=== PATIENT | male | born 1940 | race Caucasian/White ===

== ENCOUNTER 2018-02-27 01:18 | Inpatient (IN) | payer MEDICARE ==
[~2018-02-27] VITALS: Ht 177.8 cm; Wt 76.6 kg
[2018-02-27 01:52] LABS: BASOPHILS % (AUTO) 0.5 % (0.0-5.0); EOSINOPHILS % (AUTO) 0.7 % (0.0-8.0); HEMATOCRIT 48.3 % (42-54); LYMPHOCYTES % (AUTO) 6.3 % (21.0-51.0); MEAN CORPUSCULAR HEMOGLOBIN 29.6 pg (27.0-33.0); MEAN CORPUSCULAR HGB CONC 33.3 g/dL (32.0-36.0); MEAN CORPUSCULAR VOLUME 88.9 fL (79-99); MONOCYTES % (AUTO) 9.8 % (3.0-13.0); NEUTROPHILS % (AUTO) 82.7 % (40.0-77.0); PLATELET COUNT (AUTO) 136 K/uL (130-400); RED BLOOD CELL COUNT(AUTO) 5.43 MIL/uL (4.50-6.20); RED CELL DISTRIBUTION WIDTH 13.9 % (11.0-15.5); WHITE BLOOD COUNT (AUTO) 10.6 K/uL (4.8-10.8)
[2018-02-27 02:07] LABS: AMYLASE 67 U/L (25-115); CREATINE KINASE, TOTAL 46 U/L (21-232); LIPASE 91 U/L (114-286)
[2018-02-27 02:11] LABS: INR 1.14 (0.85-1.15); PARTIAL THROMBOPLASTIN TIME 26.6 SEC (26.3-35.5); PROTHROMBIN TIME 11.9 SEC (9.6-11.6)
[2018-02-27] MEDS ORDERED: ONDANSETRON HCL 4 MG/2 ML VIAL ONE (04:01)
[2018-02-27] MEDS ORDERED: KETOROLAC TROMETHAMINE 15MG/ML ONE (04:01)
[2018-02-27] MEDS ORDERED: METRONIDAZOLE 500MG/100ML BAG 100 ML ONE (04:01)
[2018-02-27] MEDS ORDERED: SODIUM CHLORIDE 0.9% 1000ML 1,000 ML IV ONE (04:01)
[2018-02-27] MEDS ORDERED: ONDANSETRON HCL 4 MG/2 ML VIAL IV PRN (04:30)
[2018-02-27 05:10] VITALS: BP 99/62
[2018-02-27 08:27] VITALS: BP 96/58
[2018-02-27 09:07] LABS: APPEARANCE,URINE Clear (CLEAR); BILIRUBIN,URINE Small (NEGATIVE); COLOR,URINE Dark Yellow (YELLOW); GLUCOSE, URINE (UA) Negative (NEGATIVE); KETONES,URINE Trace mg/dL (NEGATIVE); LEUKOCYTE ESTERASE ,URINE Trace (NEGATIVE); NITRATE,URINE Negative (NEGATIVE); OCCULT BLOOD,URINE Negative (NEGATIVE); PH,URINE 5.5 (5.0-8.0); PROTEIN,URINE Trace (NEGATIVE)
[2018-02-27 09:26] LABS: BACTERIA,URINE Rare /HPF (None Seen); MUCUS,URINE Few LPF (None Seen); RBC,URINE 0-1 /HPF (0-1); SQUAMOUS EPITHELIAL CELL,UR Rare /HPF (0-2)
[2018-02-27] MEDS: METRONIDAZOLE 500MG/100ML BAG 100 ML IV SCH ×3 (10:21→20:50)
[2018-02-27] MEDS: FAMOTIDINE/PF 20 MG/2 ML VIAL IV SCH ×2 (10:24→20:50)
[2018-02-27] MEDS: SODIUM CHLORIDE 0.9% 1000ML 1,000 ML IV SCH ×3 (10:25→17:38)
[2018-02-27 12:11] VITALS: BP 102/57
[2018-02-27 16:21] VITALS: BP 104/58
[2018-02-27] MEDS ORDERED: LEVOFLOXACIN 500 MG/D5W 100 ML 100 ML IV SCH (17:45)
[2018-02-27 19:32] VITALS: BP 103/60
[2018-02-27] MEDS ORDERED: OMEP20CA10 PO (23:15)
[2018-02-27] MEDS ORDERED: [UNRECOGNIZED DRUG - OTHER] (23:15)
[2018-02-27] MEDS ORDERED: POLY119P8 PO (23:15)
[2018-02-27] MEDS ORDERED: CHON100P3 MC (23:15)
[2018-02-27] MEDS ORDERED: MONT10TA21 PO (23:15)
[2018-02-27] MEDS ORDERED: TAMS-1 PO (23:15)
[2018-02-27] MEDS ORDERED: ATOR10 PO (23:15)
[2018-02-27] MEDS ORDERED: GLUC100019 PO (23:15)
[2018-02-27] MEDS ORDERED: FISH1CAP63 PO (23:15)
[2018-02-27 23:18] VITALS: BP 106/60
[2018-02-28] MEDS: SODIUM CHLORIDE 0.9% 1000ML 1,000 ML IV SCH ×4 (00:01→21:49)
[2018-02-28 03:21] VITALS: BP 106/63
[2018-02-28 04:33] LABS: HEMATOCRIT 37.3 % (42-54); MEAN CORPUSCULAR HGB CONC 34.6 g/dL (32.0-36.0); MEAN CORPUSCULAR VOLUME 89.5 fL (79-99); PLATELET COUNT (AUTO) 118 K/uL (130-400); RED BLOOD CELL COUNT(AUTO) 4.16 MIL/uL (4.50-6.20); RED CELL DISTRIBUTION WIDTH 13.7 % (11.0-15.5); WHITE BLOOD COUNT (AUTO) 5.6 K/uL (4.8-10.8)
[2018-02-28 04:38] LABS: HEMOGLOBIN A1C 5.3 % (4.0-6.0)
[2018-02-28 04:56] LABS: ALBUMIN 2.7 g/dL (3.5-5.0); CREATININE 1.2 mg/dL (0.5-1.5); CRP QUANTITATIVE 32.5 mg/L (0.00-9.0); MAGNESIUM 1.7 mg/dL (1.80-2.40); PHOSPHORUS 2.7 mg/dL (2.5-4.9); POTASSIUM 3.8 mmol/L (3.5-5.1); TOTAL PROTEIN, SERUM 5.4 g/dL (6.0-8.3)
[2018-02-28] MEDS: METRONIDAZOLE 500MG/100ML BAG 100 ML IV SCH ×3 (05:12→21:48)
[2018-02-28 05:38] LABS: ERYTHROCYTE SEDIMENTATION RATE 9 MM/HR (0-20)
[2018-02-28] MEDS: MORPHINE SULFATE 2 MG/ML 1ML SYG IV PRN ×3 (06:39→14:34)
[2018-02-28 08:19] VITALS: BP 113/66
[2018-02-28] MEDS: FAMOTIDINE/PF 20 MG/2 ML VIAL IV SCH ×2 (09:53→21:48)
[2018-02-28 11:54] VITALS: BP 161/80
[2018-02-28 17:01] VITALS: BP 115/65
[2018-02-28] MEDS ORDERED: MAGNESIUM 2GM PREMIX 50ML 50 ML IV PRN (19:15)
[2018-02-28 19:40] VITALS: BP 130/81
[2018-02-28 23:10] VITALS: BP 124/70
[2018-03-01 03:00] VITALS: BP 142/95
[2018-03-01] MEDS: MORPHINE SULFATE 2 MG/ML 1ML SYG IV PRN (04:43)
[2018-03-01] MEDS: METRONIDAZOLE 500MG/100ML BAG 100 ML IV SCH ×3 (04:44→20:13)
[2018-03-01] MEDS: SODIUM CHLORIDE 0.9% 1000ML 1,000 ML IV SCH ×4 (04:44→20:13)
[2018-03-01 05:57] LABS: HEMATOCRIT 39.1 % (42-54); MEAN CORPUSCULAR HEMOGLOBIN 30.3 pg (27.0-33.0); MEAN CORPUSCULAR HGB CONC 34.1 g/dL (32.0-36.0); MEAN CORPUSCULAR VOLUME 88.9 fL (79-99); PLATELET COUNT (AUTO) 107 K/uL (130-400); RED CELL DISTRIBUTION WIDTH 13.4 % (11.0-15.5)
[2018-03-01 06:10] LABS: BAND NEUTROPHILS % (MANUAL) 2 % (0-2); BASOPHILS % (MANUAL) 1 % (0-2); EOSINOPHILS % (MANUAL) 2 % (1-6); LYMPHOCYTES % (MANUAL) 11 % (22-44); MAN.DIFF COMMENT-IMPRESSION MANUAL DIFFERENTIAL; MONOCYTES % (MANUAL) 11 % (2-9); SEGMENTED NEUTROPHILS % 73 % (40-70)
[2018-03-01 06:11] LABS: PLATELET MORPHOLOGY COMMENT DECREASED
[2018-03-01 06:13] LABS: CREATININE 1.1 mg/dL (0.5-1.5); MAGNESIUM 1.6 mg/dL (1.80-2.40); POTASSIUM 3.6 mmol/L (3.5-5.1)
[2018-03-01 08:37] VITALS: BP 124/79
[2018-03-01] MEDS: FAMOTIDINE/PF 20 MG/2 ML VIAL IV SCH ×2 (08:42→20:13)
[2018-03-01 13:31] VITALS: BP 135/78
[2018-03-01 17:00] VITALS: BP 137/75
[2018-03-01 19:26] VITALS: BP 115/77
[2018-03-01 23:22] VITALS: BP 132/75
[2018-03-02] MEDS: METRONIDAZOLE 500MG/100ML BAG 100 ML IV SCH ×3 (03:13→19:46)
[2018-03-02 03:17] VITALS: BP 123/69
[2018-03-02] MEDS: SODIUM CHLORIDE 0.9% 1000ML 1,000 ML IV SCH ×3 (05:26→21:49)
[2018-03-02 05:53] LABS: HEMATOCRIT 40.3 % (42-54); MEAN CORPUSCULAR HGB CONC 35.4 g/dL (32.0-36.0); MEAN CORPUSCULAR VOLUME 87.4 fL (79-99); PLATELET COUNT (AUTO) 133 K/uL (130-400); RED BLOOD CELL COUNT(AUTO) 4.61 MIL/uL (4.50-6.20); RED CELL DISTRIBUTION WIDTH 13.2 % (11.0-15.5); WHITE BLOOD COUNT (AUTO) 7.6 K/uL (4.8-10.8)
[2018-03-02 06:23] LABS: MAGNESIUM 1.6 mg/dL (1.80-2.40); PHOSPHORUS 2.9 mg/dL (2.5-4.9); POTASSIUM 3.4 mmol/L (3.5-5.1)
[2018-03-02 07:00] VITALS: BP 137/83
[2018-03-02] MEDS ORDERED: POTASSIUM CHLORIDE 20 MEQ ERTAB PO SCH ×2 (07:15→12:00)
[2018-03-02] MEDS ORDERED: MAGNESIUM 4GM PREMIX 100ML 100 ML IV SCH (07:15)
[2018-03-02] MEDS ORDERED: LUBIPROSTONE 24 MCG CAP PO SCH (08:00)
[2018-03-02] MEDS: ACETAMINOPHEN 325 MG TAB PO PRN ×2 (09:47→19:47)
[2018-03-02] MEDS: MAGNESIUM OXIDE 400 MG TABLET PO SCH (09:48)
[2018-03-02] MEDS: FAMOTIDINE/PF 20 MG/2 ML VIAL IV SCH ×2 (09:48→19:46)
[2018-03-02 11:00] VITALS: BP 123/71
[2018-03-02] MEDS: LUBIPROSTONE 24 MCG CAP PO SCH ×2 (13:41→17:18)
[2018-03-02 14:21] LABS: CREATININE 1.1 mg/dL (0.5-1.5); MAGNESIUM 3.3 mg/dL (1.80-2.40); POTASSIUM 4.1 mmol/L (3.5-5.1)
[2018-03-02 16:00] VITALS: BP 127/70
[2018-03-02 19:00] VITALS: BP 125/74
[2018-03-02] MEDS: DICYCLOMINE HCL 20 MG TAB PO PRN (19:46)
[2018-03-02] MEDS ORDERED: IBUPROFEN 600 MG TABLET PO PRN (22:45)
[2018-03-02] MEDS ORDERED: PHARMACY COMMUNICATION MISC SCH (22:45)
[2018-03-03] VITALS: BP 135/70
[2018-03-03] MEDS: SODIUM CHLORIDE 0.9% 1000ML 1,000 ML IV SCH ×3 (00:48→08:18)
[2018-03-03] MEDS: METRONIDAZOLE 500MG/100ML BAG 100 ML IV SCH (03:40)
[2018-03-03 04:00] VITALS: BP 122/59
[2018-03-03 05:16] LABS: HEMATOCRIT 41.9 % (42-54); MEAN CORPUSCULAR HEMOGLOBIN 29.8 pg (27.0-33.0); MEAN CORPUSCULAR HGB CONC 34.1 g/dL (32.0-36.0); MEAN CORPUSCULAR VOLUME 87.3 fL (79-99); NUCLEATED RED BLOOD CELLS 0.1 % (0.0-0.19); PLATELET COUNT (AUTO) 139 K/uL (130-400); RED CELL DISTRIBUTION WIDTH 13.4 % (11.0-15.5); WHITE BLOOD COUNT (AUTO) 7.3 K/uL (4.8-10.8)
[2018-03-03] MEDS: DICYCLOMINE HCL 20 MG TAB PO PRN (05:28)
[2018-03-03 05:35] LABS: CRP QUANTITATIVE 70.3 mg/L (0.00-9.0); POTASSIUM 3.8 mmol/L (3.5-5.1)
[2018-03-03] MEDS: MORPHINE SULFATE 2 MG/ML 1ML SYG IV PRN (06:18)
[2018-03-03 07:00] VITALS: BP 122/65
[2018-03-03] MEDS: FAMOTIDINE/PF 20 MG/2 ML VIAL IV SCH (08:23)
[2018-03-03] MEDS: MAGNESIUM OXIDE 400 MG TABLET PO SCH (08:23)
[2018-03-03] MEDS: LUBIPROSTONE 24 MCG CAP PO SCH (08:23)
[2018-03-03] MEDS ORDERED: TAMSULOSIN HCL 0.4 MG CAP.ER.24H PO SCH (09:00)
[2018-03-03] MEDS ORDERED: HEMORRHOIDAL OINTMENT 57 GM CREAM.GM. RC SCH (09:00)
[2018-03-03 11:00] VITALS: BP 135/87
[2018-03-03] MEDS ORDERED: LUBI8CAP PO (13:11)
[2018-03-03] MEDS ORDERED: TAMS-1 PO (13:11)
== END 2018-03-03 14:50 | disposition home or self-care (01) | DRG 388 ==
LOC: EDH 01:18 → OBSVTOIN 04:10 → EDHIP 04:10 → 3AH 04:34
PROVIDERS: ADMIT Internal Medicine; ATTEND Internal Medicine
PROC: 0D9670Z Drainage of Stomach with Drainage Device, Via Natural or Artificial Opening (ICD-10-PCS; principal; 2018-02-27)
DX: K56.51 Intestinal adhesions [bands], with partial obstruction (principal); E41 Nutritional marasmus; E44.0 Moderate protein-calorie malnutrition; K43.9 Ventral hernia without obstruction or gangrene; N40.0 Benign prostatic hyperplasia without lower urinary tract symptoms; N40.1 Benign prostatic hyperplasia with lower urinary tract symptoms; K59.09 Other constipation; E83.42 Hypomagnesemia; E87.6 Hypokalemia; N32.89 Other specified disorders of bladder; R33.9 Retention of urine, unspecified; G62.9 Polyneuropathy, unspecified; R33.8 Other retention of urine; E78.5 Hyperlipidemia, unspecified; Z68.24 Body mass index [BMI] 24.0-24.9, adult; Z88.1 Allergy status to other antibiotic agents
CPT/HCPCS: 36415; 71046; 74018; 74176; 80048; 80053; 80061; 80339; 81001; 82150; 82270; 82550; 83036; 83630; 83690; 83735; 84100; 85025; 85027; 85610; 85651; 85730; 86140; 87046; 87071; 87177; 87205; 87324; 93005; J1885; J1956; J2405; J3475; J3490; J7030

== ENCOUNTER 2019-05-18 06:00 | Emergency (ER) | payer MEDICARE ==
[~2019-05-18 06:00] MED LIST: ATOR10 PO; CHON100P3 MC; FISH1CAP63 PO; GLUC100019 PO; LUBI8CAP PO; MONT10TA21 PO; OMEP20CA12 PO; POLY119P8 PO; TAMS-1 PO
[2019-05-18] MEDS ORDERED: KETOROLAC TROMETHAMINE 15MG/ML ONE (06:35)
[2019-05-18] MEDS ORDERED: SODIUM CHLORIDE 0.9% 1000ML 2,000 ML IV ONE (06:35)
[2019-05-18 06:41] LABS: BASOPHILS % (AUTO) 1.2 % (0.0-5.0); EOSINOPHILS % (AUTO) 2.6 % (0.0-8.0); HEMATOCRIT 48.1 % (42-54); MEAN CORPUSCULAR HEMOGLOBIN 27.5 pg (27.0-33.0); MEAN CORPUSCULAR HGB CONC 32.8 g/dL (32.0-36.0); MEAN CORPUSCULAR VOLUME 83.7 fL (79-99); MONOCYTES % (AUTO) 10.9 % (3.0-13.0); NEUTROPHILS % (AUTO) 63.1 % (40.0-77.0); PLATELET COUNT (AUTO) 130 K/uL (130-400); RED BLOOD CELL COUNT(AUTO) 5.75 MIL/uL (4.50-6.20); RED CELL DISTRIBUTION WIDTH 13.7 % (11.0-15.5); WHITE BLOOD COUNT (AUTO) 5.1 K/uL (4.8-10.8)
[2019-05-18 06:52] LABS: CREATININE 1.1 mg/dL (0.5-1.5); INR 1.09 (0.85-1.15); PARTIAL THROMBOPLASTIN TIME 27.1 SEC (26.3-35.5); POTASSIUM 3.8 mmol/L (3.5-5.1); PROTHROMBIN TIME 11.4 SEC (9.6-11.6)
[2019-05-18 06:58] LABS: ALBUMIN 3.8 g/dL (3.5-5.0); BILIRUBIN,TOTAL 0.7 mg/dL (0.2-1.0); TOTAL PROTEIN, SERUM 7.3 g/dL (6.0-8.3)
[2019-05-18 07:17] LABS: APPEARANCE,URINE CLEAR (CLEAR); BILIRUBIN,URINE NEGATIVE (NEGATIVE); COLOR,URINE YELLOW (YELLOW); GLUCOSE, URINE (UA) NEGATIVE (NEGATIVE); KETONES,URINE NEGATIVE (NEGATIVE); LEUKOCYTE ESTERASE ,URINE NEGATIVE (NEGATIVE); NITRATE,URINE NEGATIVE (NEGATIVE); OCCULT BLOOD,URINE TRACE-INTACT (NEGATIVE); PH,URINE 7.5 (5.0-8.0); PROTEIN,URINE NEGATIVE (NEGATIVE); UROBILINOGEN,URINE 0.2 mg/dL (0.2-1.0)
[2019-05-18 07:34] LABS: BACTERIA,URINE Rare /HPF (None Seen); SQUAMOUS EPITHELIAL CELL,UR Rare /HPF (0-2); WBC,URINE 0-1 /HPF (0-1)
[2019-05-18] MEDS ORDERED: METOCLOPRAMIDE 10 MG/2 ML VIAL ONE (07:56)
== END 2019-05-18 08:56 | disposition home or self-care (01) ==
LOC: EDH 06:00
DX: N20.1 Calculus of ureter (principal); N23 Unspecified renal colic; N40.0 Benign prostatic hyperplasia without lower urinary tract symptoms; E78.5 Hyperlipidemia, unspecified; Z88.1 Allergy status to other antibiotic agents; Z88.2 Allergy status to sulfonamides
CPT/HCPCS: 36415; 74176; 80053; 81001; 82550; 83605; 83690; 84484; 85025; 85610; 85730; 87040 ×2; 87088; 96374; 96375; 99284; J1885; J2765; J7030

== ENCOUNTER 2023-03-14 21:54 | Emergency (ER) | payer MEDICARE ==
[~2023-03-14] VITALS: Ht 177.8 cm; Wt 73.5 kg
[~2023-03-14 21:54] MED LIST changes: +MONT-46 PO; -MONT10TA21 PO; +POLY119P3 PO; -POLY119P8 PO
[2023-03-14 22:31] LABS: BASOPHILS # (AUTO) 0.03 K/uL (0.00-0.20); BASOPHILS % (AUTO) 0.4 % (0.0-5.0); HEMATOCRIT 44.2 % (42-54); IMMATURE GRANULOCYTE ABSOLUTE 0.02 K/uL (0-1); LYMPHOCYTES # (AUTO) 0.8 K/uL (1.0-4.8); LYMPHOCYTES % (AUTO) 11.6 % (21.0-51.0); MEAN CORPUSCULAR HEMOGLOBIN 29.1 pg (27.0-33.0); MEAN CORPUSCULAR HGB CONC 34.2 g/dL (32.0-36.0); MEAN CORPUSCULAR VOLUME 85.2 fL (79-99); MONOCYTES # (AUTO) 0.6 K/uL (0.1-1.0); NEUTROPHILS # (AUTO) 5.3 K/uL (1.8-7.7); NEUTROPHILS % (AUTO) 78.7 % (40.0-77.0); PLATELET COUNT (AUTO) 149 K/uL (130-400); RED BLOOD CELL COUNT(AUTO) 5.19 MIL/uL (4.50-6.20); WHITE BLOOD COUNT (AUTO) 6.8 K/uL (4.8-10.8)
[2023-03-14 22:33] LABS: ADD UA MICROSCOPIC YES; APPEARANCE,URINE CLEAR (CLEAR); BILIRUBIN,URINE NEGATIVE (NEGATIVE); COLOR,URINE YELLOW (YELLOW); GLUCOSE, URINE (UA) NEGATIVE (NEGATIVE); KETONES,URINE 10 mg/dL (NEGATIVE); LEUKOCYTE ESTERASE ,URINE NEGATIVE Leu/uL (NEGATIVE); NITRATE,URINE NEGATIVE (NEGATIVE); OCCULT BLOOD,URINE NEGATIVE (NEGATIVE); PH,URINE 5.5 (5.0-8.0); PROTEIN,URINE NEGATIVE (NEGATIVE); UROBILINOGEN,URINE 0.2 mg/dL (0.2-1.0)
[2023-03-14 22:34] LABS: MUCUS,URINE RARE LPF (None Seen); WBC,URINE 0-1 /HPF (0-1)
[2023-03-14 22:47] LABS: CREATININE 1.3 mg/dL (0.5-1.5)
[2023-03-14 22:54] LABS: ALBUMIN 3.5 g/dL (3.5-5.0); BILIRUBIN,TOTAL 0.9 mg/dL (0.2-1.0); TOTAL PROTEIN, SERUM 7.6 g/dL (6.0-8.3)
[2023-03-14 22:58] LABS: B-TYPE NATRIURETIC PEPTIDE 31 pg/mL (0-100)
[2023-03-14] MEDS ORDERED: IOHEXOL 350 MG/ML 100ML INFUS..BTL IV ONE (23:01)
[2023-03-15] MEDS ORDERED: IBUP-1493 PO (00:58)
[2023-03-15] MEDS ORDERED: DICY20TA2 PO (01:00)
[2023-03-15 01:04] VITALS: BP 112/63; PULSE 75; RESP 18; O2SAT 96
== END 2023-03-15 02:20 | disposition home or self-care (01) ==
LOC: EDH 21:54
DX: R10.9 Unspecified abdominal pain (principal); R11.2 Nausea with vomiting, unspecified; E78.00 Pure hypercholesterolemia, unspecified; Z79.899 Other long term (current) drug therapy; Z98.890 Other specified postprocedural states; Z88.1 Allergy status to other antibiotic agents; Z88.2 Allergy status to sulfonamides; Z88.8 Allergy status to other drugs, medicaments and biological substances
CPT/HCPCS: 99285; 74177; 71045; 82550; 84484; 80053; 83880; 85025; 83605; 81001; 36415; 93005; Q9967

== ENCOUNTER 2023-03-22 09:25 | Emergency (ER) | payer MEDICARE ==
[~2023-03-22] VITALS: Ht 177.8 cm; Wt 69.4 kg
[~2023-03-22 09:25] MED LIST changes: +DICY20TA2 PO; +IBUP-1493 PO
[2023-03-22 09:55] LABS: BASOPHILS # (AUTO) 0.04 K/uL (0.00-0.20); BASOPHILS % (AUTO) 0.6 % (0.0-5.0); EOSINOPHILS # (AUTO) 0.21 K/uL (0.00-0.70); EOSINOPHILS % (AUTO) 3.3 % (0.0-8.0); HEMATOCRIT 43.2 % (42-54); IMMATURE GRANULOCYTE ABSOLUTE 0.04 K/uL (0-1); LYMPHOCYTES # (AUTO) 1.2 K/uL (1.0-4.8); LYMPHOCYTES % (AUTO) 18.7 % (21.0-51.0); MEAN CORPUSCULAR HEMOGLOBIN 28.9 pg (27.0-33.0); MEAN CORPUSCULAR HGB CONC 33.6 g/dL (32.0-36.0); MEAN CORPUSCULAR VOLUME 86.2 fL (79-99); MONOCYTES # (AUTO) 0.7 K/uL (0.1-1.0); MONOCYTES % (AUTO) 10.3 % (3.0-13.0); NEUTROPHILS # (AUTO) 4.3 K/uL (1.8-7.7); NEUTROPHILS % (AUTO) 66.5 % (40.0-77.0); PLATELET COUNT (AUTO) 211 K/uL (130-400); RED BLOOD CELL COUNT(AUTO) 5.01 MIL/uL (4.50-6.20); WHITE BLOOD COUNT (AUTO) 6.4 K/uL (4.8-10.8)
[2023-03-22 09:57] LABS: APPEARANCE,URINE CLEAR (CLEAR); BILIRUBIN,URINE NEGATIVE (NEGATIVE); GLUCOSE, URINE (UA) NEGATIVE (NEGATIVE); KETONES,URINE NEGATIVE (NEGATIVE); LEUKOCYTE ESTERASE ,URINE NEGATIVE Leu/uL (NEGATIVE); NITRATE,URINE NEGATIVE (NEGATIVE); OCCULT BLOOD,URINE NEGATIVE (NEGATIVE); PH,URINE 5.5 (5.0-8.0); PROTEIN,URINE NEGATIVE (NEGATIVE); UROBILINOGEN,URINE 0.2 mg/dL (0.2-1.0)
[2023-03-22 09:58] LABS: ADD UA MICROSCOPIC NO; COLOR,URINE YELLOW (YELLOW)
[2023-03-22 10:06] LABS: CREATININE 1.1 mg/dL (0.5-1.5); POTASSIUM 3.7 mmol/L (3.5-5.1)
[2023-03-22 10:11] LABS: ALBUMIN 3.3 g/dL (3.5-5.0); BILIRUBIN,TOTAL 0.7 mg/dL (0.2-1.0); TOTAL PROTEIN, SERUM 6.5 g/dL (6.0-8.3)
[2023-03-22 10:16] LABS: SARS-CoV-2, RNA, NAAT NEGATIVE SARS CoV-2 (NEGATIVE)
[2023-03-22 10:19] LABS: INFLUENZA TYPE A Negative For Type A (NEGATIVE); INFLUENZA TYPE B Negative For Type B (NEGATIVE)
[2023-03-22] MEDS ORDERED: DEXAMETHASONE SOD PHOSPHATE 4 MG/ML 1ML VIAL IVP ONE (12:00)
[2023-03-22] MEDS ORDERED: ALBUTEROL 0.083% 2.5 MG/3 ML INH IH ONE (12:00)
[2023-03-22 12:28] VITALS: BP 99/56; O2SAT 98
[2023-03-22] MEDS ORDERED: BUDE90AE IH (13:04)
[2023-03-22] MEDS ORDERED: BENZ-39 PO (13:04)
[2023-03-22] MEDS ORDERED: ALBUHFA IH (13:05)
[2023-03-22 13:17] VITALS: PULSE 69; RESP 18
== END 2023-03-22 13:28 | disposition home or self-care (01) ==
LOC: EDH 09:25
DX: J06.9 Acute upper respiratory infection, unspecified (principal); R05.9 Cough, unspecified; R06.00 Dyspnea, unspecified; E78.00 Pure hypercholesterolemia, unspecified; Z88.1 Allergy status to other antibiotic agents; Z88.2 Allergy status to sulfonamides; Z88.8 Allergy status to other drugs, medicaments and biological substances; Z20.822 Contact with and (suspected) exposure to COVID-19
CPT/HCPCS: 99285; 96374; 71045; 87635; 84484; 80053; 85025; 87880; 87804 ×2; 81003; 36415; 93005; 94640; J1100; C9803; 96375